=== PATIENT | male | born 1945 | race Caucasian/White ===

== ENCOUNTER → 2021-09-01 | Outpatient (CLI) | payer MEDICARE, OTHER | LOC: MRI 12:59 | DX: M51.16 Intervertebral disc disorders with radiculopathy, lumbar region (principal); M51.17 Intervertebral disc disorders with radiculopathy, lumbosacral region | CPT/HCPCS: 36415; 72158; 82565; A9577 ==

== ENCOUNTER → 2021-09-03 | Outpatient (CLI) | payer MEDICARE, OTHER | LOC: KOH-I 12:43 | DX: M47.26 Other spondylosis with radiculopathy, lumbar region (principal) | CPT/HCPCS: 72100; 72131 ==